=== PATIENT | female | born 1975 | race Two or more races ===

== ENCOUNTER 2024-09-15 00:25 | Emergency (ER) | payer MEDICAID, SELFPAY ==
[2024-09-15 00:30] VITALS: PULSE 104; RESP 20; O2SAT 99; BMI 32.3
[2024-09-15 02:00] VITALS: BP 119/78; PULSE 116; RESP 18; TEMP 37.1; O2SAT 95
--- NOTE | 2024-09-15 02:22 | XR_ITS ---
Examination: Knee, left , 3 views Technique: Knee AP, lateral, oblique 3 views Date and time of exam: September 15, 2024 0240 hours INDICATIONS: Patient fell yesterday with injury to the knee, knee pain. FINDINGS: Subtle radiolucency on the AP view over the lateral tibial plateau Femur patella and fibula appear intact IMPRESSION: Subtle radiolucency over the lateral tibial plateau on the AP view, which may be a trabecular marking, clinical correlation is advised Repeat the knee films short-term as clinically warranted
[2024-09-15] MEDS: DIPHTH,PERTUSS(ACELL),TET VAC 0.5 ML SYR- ADULT IMi (02:32)
--- NOTE | 2024-09-15 04:42 | PD.EDWOUND ---
ED Wound/Laceration-RME/HPI General Chief Complaint: Wound/Laceration Stated Complaint: FALL Time Seen by Provider: 09/15/24 02:21 Arrival date/time: 09/15/24 00:25 Related Data Previous Rx's ?Medication ?Instructions ?Recorded fluticasone propionate 50 2 spray intranasal QDAY #16 grams 02/28/18 mcg/actuation nasal spray,suspension (Flonase Allergy Relief) loratadine 10 mg tablet 10 mg PO QDAY #30 tabs 02/28/18 Allergies Allergy/AdvReac Type Severity Reaction Status Date / Time No Known Allergies Allergy Verified 09/15/24 00:46 Course Orders Category Date Time Status TDap [Obtain Tdap Consent] X1 Care 09/15/24 02:22 Active XR knee LT 3V Stat Exams 09/15/24 02:22 Taken TET,DIP/PERT AC (Adult)-Tdap [Boostrix Adult (Tdap) Med 09/15/24 02:22 Discontinued Vacc] 0.5 ml IMI .ONCE ONE Vital Signs Vital signs: Vital Signs Temperature 98.7 F 09/15/24 02:00 Pulse Rate 116 H 09/15/24 02:00 Respiratory Rate 18 09/15/24 02:00 Blood Pressure 119/78 09/15/24 02:00 Pulse Oximetry (%) 95 09/15/24 02:00 Oxygen Delivery Method Room Air 09/15/24 02:00 Wound / Laceration MDM Narrative MDM Narrative:: Approximate 4.5 to 5.0 cm laceration to the left anterior knee. Anesthesia with approximately 8 mL of lidocaine 1% without epi with good anesthesia obtained. Wound cleansed and irrigated, Betadine prep. Wound closure with number three 4-0 Vicryl sutures and number ten 4-0 nylon sutures with good wound edge approximation. Patient tolerated procedure well. Wound cleansed, antibiotic ointment and a dressing applied with Jun wrap. Medications / Prescriptions Medication administrations:: Medication Administration History Discontinued Medications Diphtheria/Tetanus/Acell Pertussis (Diphth,Pertuss(Acell),Tet Vac 0.5 Ml Syr- Adult) 0.5 ml IMi .ONCE ONE Stop: 09/15/24 02:23 Last Admin: 09/15/24 02:32 Dose: 0.5 ml Documented By: CAROLINE Discharge Plan Plan Patient Disposition: HOME (Self Care) Discharge Disposition comment: Stable and improved Prescriptions/Referrals Prescriptions/Med Rec: No Action fluticasone propionate [Flonase Allergy Relief] 50 mcg/actuation spray,suspension 2 spray INTRANASAL QDAY Qty: 16 0RF Rx Instructions: administer into each nostril loratadine 10 mg tablet 10 mg PO QDAY Qty: 30 0RF Referrals: Sim Cannon PA-C [Primary Care Provider] - In 1 week Problem List Clinical Impression: Laceration, Abrasion Patient/Caregiver Discharge Instructions Education Materials: Wound Care Dc, ED Abrasions, ED Laceration Ext Sutr Tape Ch Additional Instructions: Keep the wounds clean and dry, do not expose it to excessive amounts of moisture. Attempt to keep the left knee as straight as possible until sutures are removed. Suture removal in 10 to 14 days. Follow-up with your primary care physician in 24 to 48 hours. Return to the ED for any new or worsening symptoms. Print Language: Belgian Stand Alone Forms: Bela Award Info., Patient Portal Info Letter ALESSANDRA/JULIO Supervising Physician HATTIE Supervising Physician: Dr Magaña
== END 2024-09-15 04:56 | disposition home or self-care (01) ==
PROVIDERS: Emergency Provider Emergency Medicine; PCP Family Medicine
DX: S81.012A Laceration without foreign body, left knee, initial encounter (principal); W19.XXXA Unspecified fall, initial encounter; Z23 Encounter for immunization
CPT/HCPCS: 12002; 73562; 90471; 90715; 99283